=== PATIENT | female | born 1995 | race American Indian/Alaskan Native ===

== ENCOUNTER 2018-09-01 11:55 | Emergency (ER) | payer SELFPAY ==
[2018-09-01] MEDS ORDERED: ATROVENT IH ONE (12:27)
[2018-09-01] MEDS ORDERED: PROVENTIL IH ONE ×2 (12:27→14:14)
--- NOTE | 2018-09-01 12:27 | Emergency Department Report ---
Blank Doc - Documentation Documentation: This is a 22-year-old female that presents with asthma exacerbation. This initial assessment diagnostic orders/clinical plan/treatment(s) is/are subject to change based on patient's health status, clinical progression and re- assessment by fellow clinical providers in the ED. Further treatment and workup at subsequent clinical providers discretion. Patient/guardians urged not to elope from ED s their condition may be serious if not clinically assessed and managed. Initial orders include: 1-patient sent to [facility] for further evaluation and treatment. 2- TX 3- CXR
[2018-09-01 12:28] VITALS: BP 156/106
[2018-09-01] MEDS ORDERED: DECADRON IM ONE (12:28)
[2018-09-01] MEDS ORDERED: DUONEB *Not for PRN Use IH ONE (14:14)
--- NOTE | 2018-09-01 14:39 | Emergency Department Report ---
ED Shortness of Breath HPI - General Chief Complaint: Dyspnea/Respdistress Stated Complaint: ASTHMA ATTACK Time Seen by Provider: 09/01/18 12:25 Source: patient Mode of arrival: Ambulatory Limitations: No Limitations - History of Present Illness MD Complaint: "asthma attack" -: Last night Severity: moderate Consistency: constant Improves With: nothing Worsens With: nothing Known History Of: asthma Associated Symptoms: cough - Related Data Home Oxygen Therapy: No Previous Rx's Medication Instructions Recorded Last Taken Type ALBUTEROL Inhaler(NF) [VENTOLIN 1 puff IH Q4HR PRN #1 inha 09/01/18 Unknown Rx Inhaler(NF)] Albuterol Sulfate [Albuterol 0.63% 0.63 mg IH TID PRN #90 vial 09/01/18 Unknown Rx NEBS] predniSONE [Prednisone] 50 mg PO DAILY #5 tablet 09/01/18 Unknown Rx Allergies Allergy/AdvReac Type Severity Reaction Status Date / Time No Known Allergies Allergy Unverified 09/01/18 12:28 ED Review of Systems ROS: Stated complaint: ASTHMA ATTACK Other details as noted in HPI Comment: All other systems reviewed and negative Constitutional: denies: chills, diaphoresis Respiratory: shortness of breath, wheezing ED Past Medical Hx - Past Medical History Previous Medical History?: Yes Hx Asthma: Yes - Surgical History Past Surgical History?: No - Social History Smoking Status: Never Smoker Substance Use Type: None - Medications Home Medications: Home Medications Medication Instructions Recorded Confirmed Last Taken Type ALBUTEROL Inhaler(NF) [VENTOLIN 1 puff IH Q4HR PRN #1 inha 09/01/18 Unknown Rx Inhaler(NF)] Albuterol Sulfate [Albuterol 0.63% 0.63 mg IH TID PRN #90 vial 09/01/18 Unknown Rx NEBS] predniSONE [Prednisone] 50 mg PO DAILY #5 tablet 09/01/18 Unknown Rx ED Physical Exam - General Limitations: No Limitations General appearance: alert, in no apparent distress - Head Head exam: Present: atraumatic, normocephalic - Eye Eye exam: Present: normal appearance - ENT ENT exam: Present: mucous membranes moist - Neck Neck exam: Present: normal inspection - Respiratory Respiratory exam: Present: normal lung sounds bilaterally. Absent: respiratory distress - Cardiovascular Cardiovascular Exam: Present: normal rhythm, tachycardia - GI/Abdominal GI/Abdominal exam: Present: soft. Absent: distended - Extremities Exam Extremities exam: Present: normal inspection - Neurological Exam Neurological exam: Present: alert, oriented X3 - Psychiatric Psychiatric exam: Present: normal affect, normal mood - Skin Skin exam: Present: warm, dry, intact, normal color ED Course Vital Signs 09/01/18 12:26 Temperature 98.0 F Pulse Rate 108 H Respiratory 22 Rate Blood Pressure 156/106 O2 Sat by Pulse 98 Oximetry ED Medical Decision Making - Radiology Data Radiology results: image reviewed - Medical Decision Making - pt already given nebs and steroids upon my examination - lung exam normal, pt reports feeling much better - will d/c w/ rx for prednisone, albuterol nebs and MDI - advised outot f/u - return precautions given - Differential Diagnosis asthma, pneumonia Critical care attestation.: If time is entered above; I have spent that time in minutes in the direct care of this critically ill patient, excluding procedure time. ED Disposition Clinical Impression: Asthma with acute exacerbation Disposition: TO HOME OR SELFCARE Is pt being admited?: No Condition: Stable Instructions: Asthma (ED) Prescriptions: Albuterol Sulfate [Albuterol 0.63% NEBS] 0.63 mg IH TID PRN #90 vial PRN Reason: Wheezing predniSONE [Prednisone] 50 mg PO DAILY #5 tablet ALBUTEROL Inhaler(NF) [VENTOLIN Inhaler(NF)] 1 puff IH Q4HR PRN #1 inha PRN Reason: Wheezing Referrals: ADOLFO HAGAN MD [Primary Care Provider] - 3-5 Days Time of Disposition: 14:40
--- NOTE | 2018-09-01 16:47 | XRay Report ---
PROCEDURE: XR CHEST ROUTINE 2V TECHNIQUE: PA and lateral views of the chest. HISTORY: wheezing COMPARISONS: None FINDINGS: Lines, tubes, and devices: N/A Lungs and pleura: Trachea is normal in position. Lungs are clear of infiltrate, pleural effusion, vas cular congestion, or pneumothorax. Cardiomediastinal silhouette: Cardiac and mediastinal silhouettes are unremarkable. Other: Bony structures are intact. IMPRESSION: No acute cardiopulmonary process seen. This document is electronically signed by Regina Gan MD., September 01 2018 04:45:19 PM ET
== END 2018-09-01 14:47 | disposition home or self-care (01) ==
LOC: ED 11:55
DX: J45.901 Unspecified asthma with (acute) exacerbation (principal)
CPT/HCPCS: 71046; 94640; 96372; 99284; J1100